=== PATIENT | female | born 1975 | race Caucasian/White ===

== ENCOUNTER → 2018-02-25 | Outpatient (CLI) | payer OTHER ==
[2018-02-25 19:30] LABS: PROGESTERONE 5.5 NG/ML
[2018-02-25 19:30] LABS: FOLLICLE STIMULATING HORMONE 5.2 mIU/mL; LUTEINIZING HORMONE 4.7 mIU/mL
[2018-02-27 17:28] LABS: HPV HYBRID CAPTURE II Negative (Negative)
[2018-02-28 00:21] LABS: CARDIOLIPIN IGA ANTIBODY <9 APL U/mL (0-11); CARDIOLIPIN IGG ANTIBODY <9 GPL U/mL (0-14); CARDIOLIPIN IGM ANTIBODY <9 MPL U/mL (0-12)
== END ==
LOC: M SMT 14:45
DX: N96 Recurrent pregnancy loss (principal); Z12.4 Encounter for screening for malignant neoplasm of cervix
CPT/HCPCS: 83001

== ENCOUNTER 2018-04-14 09:32 | Emergency (ER) | payer OTHER ==
[2018-04-14 10:14] LABS: BASO % 0.3 % (0.0-1.0); EOS % 0.4 % (0.0-3.0); HEMATOCRIT 37.8 % (36.0-47.0); HEMOGLOBIN 12.5 g/dl (12.0-15.5); IMMATURE GRANULOCYTE % 0.2 % (0-3.0); LYMPH # 1.6 10^3/uL (1.5-4.5); LYMPH % 15.4 % (24.0-44.0); MEAN CORPUSCULAR HEMOGLOBIN 27.3 pg (27.0-33.0); MEAN CORPUSCULAR HGB CONC 33.1 g/dl (32.0-36.5); MEAN CORPUSCULAR VOLUME 82.5 fl (80.0-96.0); MONO # 0.5 10^3/uL (0.0-0.8); MONO % 5.1 % (0.0-5.0); NEUTROPHILS # 8.1 10^3/uL (1.8-7.7); NEUTROPHILS % 78.6 % (36.0-66.0); PLATELET COUNT, AUTOMATED 298 10^3/uL (150-450); RED BLOOD COUNT 4.58 10^6/uL (4.00-5.40); RED CELL DISTRIBUTION WIDTH 15.1 % (11.5-14.5); WHITE BLOOD COUNT 10.3 10^3/uL (4.0-10.0)
[2018-04-14 10:28] LABS: AMORPHOUS SEDIMENT RFX SMALL (NEGATIVE); KETONE, URINE AUTO RFX 1+ mg/dL (NEGATIVE); MUCUS, URINE RFX SMALL (NEGATIVE); NITRITE, URINE AUTO RFX NEGATIVE (NEGATIVE); RBC, URINE AUTO RFX 15 /HPF (0-3); SPECIFIC GRAVITY UR AUTO RFX 1.021 (1.002-1.035); SQUAM EPITHELIAL CELL UR AURFX 2 /HPF (0-6); WBC, URINE AUTO RFX 7 /HPF (0-3)
[2018-04-14 10:29] LABS: LEUKOCYTE ESTERASE UR AUTO RFX TRACE (NEGATIVE)
[2018-04-14 10:53] LABS: HCG, SERUM QUANTITATIVE 73710 MIU/ML
== END 2018-04-14 11:53 | disposition home or self-care (01) ==
LOC: M ED 09:32
DX: O26.851 Spotting complicating pregnancy, first trimester (principal)
CPT/HCPCS: 76801

== ENCOUNTER → 2018-06-19 | Outpatient (CLI) | payer OTHER | LOC: M RAD 12:54 | DX: O09.522 Supervision of elderly multigravida, second trimester (principal); O32.2XX0 Maternal care for transverse and oblique lie, not applicable or unspecified; Z3A.18 18 weeks gestation of pregnancy | CPT/HCPCS: 76811 ==

== ENCOUNTER → 2018-07-12 | Outpatient (CLI) | payer OTHER | LOC: M RAD 13:13 | DX: O09.522 Supervision of elderly multigravida, second trimester (principal); Z3A.21 21 weeks gestation of pregnancy | CPT/HCPCS: 76816 ==

== ENCOUNTER → 2018-07-24 | Outpatient (CLI) | payer OTHER ==
[2018-07-24 18:34] LABS: GLUCOSE CHALLENGE TEST 1 HOUR 133 MG/DL (LESS THAN 140)
[2018-07-24 18:37] LABS: HEMATOCRIT 34.8 % (36.0-47.0); HEMOGLOBIN 11.4 g/dl (12.0-15.5); MEAN CORPUSCULAR HEMOGLOBIN 28.2 pg (27.0-33.0); MEAN CORPUSCULAR HGB CONC 32.8 g/dl (32.0-36.5); MEAN CORPUSCULAR VOLUME 86.1 fl (80.0-96.0); PLATELET COUNT, AUTOMATED 262 10^3/uL (150-450); RED BLOOD COUNT 4.04 10^6/uL (4.00-5.40); RED CELL DISTRIBUTION WIDTH 14.6 % (11.5-14.5); WHITE BLOOD COUNT 12.6 10^3/uL (4.0-10.0)
== END ==
LOC: M SMT 13:52
DX: O09.522 Supervision of elderly multigravida, second trimester (principal)
CPT/HCPCS: 82950

== ENCOUNTER → 2018-08-07 | Outpatient (CLI) | payer OTHER ==
--- NOTE | 2018-08-07 15:07 | REP ---
Clinical: Anatomical evaluation. Comparison: 07/12/2018 . Findings: Examination demonstrates a single live intrauterine in breech presentation. motion is identified by technologist. Placenta is noted anterior fundal and grade grade 1 without evidence for placenta previa or abruption. Amniotic fluid volume is normal. Cervix measures 5.2 cm in length and appears closed. Nuchal cord cannot be excluded Gestational age by LMP 25 weeks 5 days with LANI 11/15/2018 . Gestational age by current measurements 26 weeks 0 days with LANI 11/13/2018 . FHR equals 169 beats per minute. Estimated weight 879 grams ( 51st percentile). Anatomical assessment demonstrates normal structures including cranium, choroid plexus, cavum, cerebellum/posterior fossa, facial features, lungs, four-chamber heart/ventricular outflow tracts, diaphragm, stomach, cord insertion/three-vessel cord, kidneys/bladder, spine, and extremities. Impression: 1. Single live intrauterine in breech presentation demonstrating appropriate interval growth. In conjunction with prior examination anatomical assessment is complete and normal. 2. Nuchal cord cannot be excluded. Electronically Signed by Joshua Do MD 08/07/2018 02:59 P
== END ==
LOC: M RAD 13:47
PROVIDERS: ATTEND Obstetrics & Gynecology
DX: O09.522 Supervision of elderly multigravida, second trimester (principal); O32.1XX0 Maternal care for breech presentation, not applicable or unspecified; Z3A.25 25 weeks gestation of pregnancy

== ENCOUNTER → 2018-10-04 | Outpatient (CLI) | payer OTHER ==
--- NOTE | 2018-10-04 19:14 | REP ---
Obstetric ultrasound for third trimester biophysical profile and growth: There is a single intrauterine gestation in a vertex presentation. There is movement and cardiac activity. The heart rate is 103 beats per minute. The placenta is anterior. There is no placenta previa or abruptio. The placenta is grade 1. The amniotic fluid volume subjectively is normal. The amniotic fluid index is 11.1 (8.1 - 24.8) The cervix is 4.7 cm length. Gestational age by today's ultrasound is 13 5 weeks 0 days/LANI 11/08/2018. Gestational age by the first ultrasound 34 weeks 0 days/LANI 11/15/2018. Gestational age by LMP is 34 weeks 0 days/LANI 11/15/2018. weight is 2000 591 grams/5 pounds, 11 ounces. This is the 66th percentile for 34 weeks 0 days. Biophysical profile: Breathing 2.0 Movement 2.0 Tone 2.0 AFV 2.0 Total 8.0 / 8.0. Umbilical artery Doppler assessment, mid cord: S/D ratio 2.94 (2.30-3.30) Resistive Index 0.68 (0.59-0.75 Diastolic Velocity 13.1 (>10 cm/sec) anatomy has been previously assessed with no anomalies. Electronically Signed by David Santamaria MD 10/04/2018 07:06 P
== END ==
LOC: M RAD 16:00
PROVIDERS: ATTEND Specialist
DX: I10 Essential (primary) hypertension (principal)

== ENCOUNTER → 2018-10-11 | Outpatient (CLI) | payer OTHER ==
[~2018-10-11] MED LIST: LABE20TAB PO; PRENTAB9 PO
--- NOTE | 2018-10-11 14:09 | REP ---
Clinical: well-being . Comparison: 10/04/2018 . Findings: Examination demonstrates a single live intrauterine in cephalic presentation. motion is identified by technologist. Placenta is noted anterior and grade II without evidence for placenta previa or abruption. Amniotic fluid volume is normal. Cervix measures 4.5 cm in length and appears closed. No evidence for nuchal cord. Gestational age by LMP 35 weeks 0 days with LANI 11/15/2018 . FHR equals 136 beats per minute. Biophysical profile score: 8/8 Amniotic fluid index: 14.6 cm (7.9 - 24.9). Umbilical cord SD ratio: 3.20 (2.00 - 3.00) Impression: Single live intrauterine in cephalic presentation. Biophysical profile score and amniotic fluid volume normal. SD ratio minimally elevated. Electronically Signed by Joshua Do MD 10/11/2018 02:00 P
== END ==
LOC: M RAD 13:19
PROVIDERS: ATTEND Specialist
DX: O09.523 Supervision of elderly multigravida, third trimester (principal); O10.013 Pre-existing essential hypertension complicating pregnancy, third trimester; Z3A.35 35 weeks gestation of pregnancy

== ENCOUNTER → 2018-10-11 | Outpatient (REF) | payer OTHER | LOC: M LAB REF 17:22 | PROVIDERS: ATTEND Advanced Practice Midwife | DX: O09.523 Supervision of elderly multigravida, third trimester (principal); Z3A.00 Weeks of gestation of pregnancy not specified ==

== ENCOUNTER 2018-10-18 15:23 | Inpatient (IN) | payer OTHER ==
[~2018-10-18] VITALS: Ht 165.1 cm; Wt 105.6 kg
[2018-10-18] VITALS (55 sets, daily range): BP systolic 117–184; BP diastolic 55–91
[2018-10-18] MEDS ORDERED: PRENTAB9 PO (15:40)
[2018-10-18] MEDS ORDERED: LABE20TAB PO (15:40)
[2018-10-18 16:13] LABS: HEMATOCRIT 35.8 % (36.0-47.0); HEMOGLOBIN 11.9 g/dl (12.0-15.5); MEAN CORPUSCULAR HEMOGLOBIN 28.6 pg (27.0-33.0); MEAN CORPUSCULAR HGB CONC 33.2 g/dl (32.0-36.5); MEAN CORPUSCULAR VOLUME 86.1 fl (80.0-96.0); PLATELET COUNT, AUTOMATED 249 10^3/uL (150-450); RED BLOOD COUNT 4.16 10^6/uL (4.00-5.40); WHITE BLOOD COUNT 11.2 10^3/uL (4.0-10.0)
[2018-10-18] MEDS: BETAMETHASONE SOLUSPAN 6MG/ML INJ 5ML (J0702) IM SCH (16:26)
[2018-10-18 16:37] LABS: CREATININE,RANDOM URINE 63.5 MG/DL; TOTAL PROTEIN,RANDOM URINE 33.4 MG/DL (0.0-12.0)
[2018-10-18] MEDS ORDERED: hydrALAZINE INJ 20 MG/ML VIAL IV STA ×2 (16:37→17:17)
[2018-10-18 16:43] LABS: ALT/SGPT 47 U/L (12-78); BILIRUBIN,TOTAL 0.1 MG/DL (0.2-1.0); CREATININE FOR GFR 0.72 MG/DL (0.55-1.30); GLOMERULAR FILTRATION RATE > 60.0 (>58); LDH LACTATE DEHYDROGENASE 195 U/L (84-246); URIC ACID 5.9 MG/DL (2.6-6.0)
[2018-10-18] MEDS ORDERED: LABETALOL HCL 100 MG/20 ML VIAL IV STA ×2 (17:45→18:07)
[2018-10-18] MEDS ORDERED: LABETALOL HCL 100 MG/20 ML VIAL As Ordered ONE (17:47)
[2018-10-18] MEDS ORDERED: LACTATED RINGER'S 1000 ML IV ONE (18:30)
[2018-10-18] MEDS: miSOPROStol 50 MCG 1/2 TAB (S0191) PO SCH ×2 (19:44→23:43)
--- NOTE | 2018-10-18 21:55 | HPE ---
DATE OF ADMISSION: 10/18/2018 Francesca is a 42-year-old 11, para 7-0-3-7 at 36 weeks gestation, estimated date of confinement (EDC) of 11/15/2018 based on last menstrual period and confirmed by first trimester ultrasound. She presents to labor and delivery today following routine appointment in the office where she was noted to have blood pressure in the severe range. She does deny headache, visual disturbances, epigastric pain and right upper quadrant discomfort. She denies vaginal bleeding, leakage of fluid and regular contractions. Her fetus has been active. Her care was initiated at [facility] in the first trimester. Her course has been complicated by chronic hypertension with now superimposed preeclampsia. She has undergone antepartum testing that had been reassuring, advanced maternal age, declined any genetic screening labs. OBSTETRICAL HISTORY: February 2002, 40 weeks 5 days, 8 pounds 10 ounces male vaginal delivery at home. September 2003, 41-2/7 weeks, 8 pounds 5 ounces male vaginal delivery at home. May 2006, 40 1/7 weeks, 9 pounds 6 ounces male vaginal delivery at home. June 2008, 41-1/7 weeks, 8 pounds 12 ounces female vaginal delivery at home. February 2010, 41 weeks gestation, 9 pounds 12 ounces female vaginal delivery at home. May 2011 spontaneous miscarriage at 9 weeks. February 2013, 41-3/7 weeks, 8 pounds 3 ounces male vaginal delivery at home. January 2015, 41-6/7 weeks, 9 pounds male vaginal delivery at home. July 2016 spontaneous miscarriage. October 2016 spontaneous miscarriage. OBSTETRIC LABORATORIES: O+, antibody screen negative, rubella immune, VDRL nonreactive. Urine culture no growth. Hep B surface antigen negative, HIV negative. Hep C antibody nonreactive. Gonorrhea and chlamydia negative. Declined genetic serum screening laboratories. Gestational diabetic screening abnormal at 133, but the patient did refuse to undergo a 3-hour glucose tolerance test. GBS is negative. The first trimester baseline pre-eclamptic labs with an AST 11, ALT 24, LDH 156, uric acid 3.2, spot urine for protein 0.11. PAST MEDICAL HISTORY: Chronic hypertension. Childhood varicella. SURGERIES: None. FAMILY HISTORY: Diabetes, thyroid disorder. SOCIAL HISTORY: The patient is . Her is at bedside. She is a nonsmoker. Denies alcohol use. Denies drug use. No history of any sexually transmitted infections and denies history of abuse -- physical, sexual and emotional. ALLERGIES: No known drug allergies. CURRENT MEDICATIONS: - Labetalol 200 mg by mouth twice a day OBJECTIVE: Temperature 98.8, pulse 93, respirations 18, BP is in the severe range repetitively, she has required two doses of IV hydralazine, as well as two doses of IV labetalol. heart rate is 135, moderate variability, positive accelerations, negative decelerations. There is no pattern of contractions. Her abdomen is gravid, cephalic presentation. Estimated weight 2900 grams to 3100 grams. Sterile vaginal exam: Fingertip, 50% effaced, ballottable station. Labs have been returned. Her spot urine for protein is 0.53. Pre-eclamptic labs: AST 27, ALT 47, LDH 195, uric acid 5.9 today. Hemoglobin 11.9, hematocrit 35.8, platelet 249. She underwent a BPP prior to her appointment today which returned a score of 8 points out of 8 points, for MELVI with oligohydramnios 5.8 cm, umbilical cord SD ratio is 2.73, in the normal range. ASSESSMENT: 1. Intrauterine at 36 weeks. heart rate category one. 2. Chronic hypertension with superimposed preeclampsia. 3. Advanced maternal age. 4. Oligohydramnios. First dose of betamethasone complete. PLAN: Per consult with Dr. Terrence Workman, admit the patient to labor and delivery for induction of labor. I did review the plan of care with the patient and her and had all their questions answered. The patient has been verbally consented for emergency surgery and blood products if necessary. We reviewed the risks to induction that include increased risk for section and intolerance to labor, failed induction. At this time, the patient will be having misoprostol 50 mcg by mouth every 4 hours for cervical ripening. Likely will start IV Pitocin. May consider Storey bulb insertion. May consider assisted rupture of membranes. The patient may consider IV pain medications and/or an epidural depending on how her labor goes. I do anticipate a labor and vaginal delivery.
[2018-10-19] VITALS (109 sets, daily range): BP systolic 106–165; BP diastolic 55–82
[2018-10-19] MEDS: miSOPROStol 50 MCG 1/2 TAB (S0191) PO SCH (03:51)
[2018-10-19] MEDS ORDERED: miSOPROStol 50 MCG 1/2 TAB (S0191) SL SCH (10:15)
[2018-10-19] MEDS ORDERED: OXYTOCIN DRIP 30 UNITS in APPROPRIATE DILUENT 1 EA IV SCH (14:45)
[2018-10-19] MEDS: LR 1,000 ML IV SCH ×2 (15:03→23:37)
[2018-10-19 15:07] LABS: HEMATOCRIT 32.7 % (36.0-47.0); HEMOGLOBIN 10.8 g/dl (12.0-15.5); MEAN CORPUSCULAR HEMOGLOBIN 28.2 pg (27.0-33.0); MEAN CORPUSCULAR VOLUME 85.4 fl (80.0-96.0); PLATELET COUNT, AUTOMATED 254 10^3/uL (150-450); RED BLOOD COUNT 3.83 10^6/uL (4.00-5.40); WHITE BLOOD COUNT 12.5 10^3/uL (4.0-10.0)
[2018-10-19] MEDS: BETAMETHASONE SOLUSPAN 6MG/ML INJ 5ML (J0702) IM SCH (16:18)
[2018-10-19] MEDS ORDERED: BUTORPHANOL 2 MG/ML INJ (J0595) IV ONE (22:45)
[2018-10-19] MEDS ORDERED: PROMETHAZINE INJ 25 MG/ML VIAL (J2550) IV ONE (22:45)
[2018-10-20] VITALS (27 sets, daily range): BP systolic 80–167; BP diastolic 43–88
[2018-10-20] MEDS ORDERED: METHYLERGONOVINE MALEATE 0.2 MG TAB PO PRN (01:30)
[2018-10-20] MEDS ORDERED: ACETAMINOPHEN 500 MG TAB PO PRN (01:30)
[2018-10-20] MEDS ORDERED: RHOGAM 300 MCG (1500 IU) INJ (J2790) IM SCH (01:30)
[2018-10-20] MEDS ORDERED: ONDANSETRON 4MG/2ML VIAL (J2405) IV PRN (01:30)
[2018-10-20] MEDS ORDERED: OXYTOCIN DRIP 30 UNITS in APPROPRIATE DILUENT 1 EA IV ONE (01:30)
[2018-10-20] MEDS ORDERED: MEASLES,MUMPS,RUBELLA VACCINE INJ (MMR-II) (90707) SC SCH (01:30)
[2018-10-20] MEDS ORDERED: IBUPROFEN 800 MG TAB PO PRN (01:30)
[2018-10-20] MEDS ORDERED: DOCUSATE SODIUM 100 MG CAP PO PRN (01:30)
[2018-10-20] MEDS ORDERED: DIBUCAINE 1% OINTMENT 30GM TOP PRN (01:30)
[2018-10-20 06:06] LABS: HEMATOCRIT 25.7 % (36.0-47.0); MEAN CORPUSCULAR HEMOGLOBIN 28.5 pg (27.0-33.0); MEAN CORPUSCULAR HGB CONC 32.7 g/dl (32.0-36.5); MEAN CORPUSCULAR VOLUME 87.1 fl (80.0-96.0); PLATELET COUNT, AUTOMATED 255 10^3/uL (150-450); RED BLOOD COUNT 2.95 10^6/uL (4.00-5.40); WHITE BLOOD COUNT 21.4 10^3/uL (4.0-10.0)
[2018-10-20 06:50] LABS: HEMOGLOBIN 8.4 g/dl (12.0-15.5)
[2018-10-20] MEDS: PRENATAL VITAMINS CHEWABLE TABLET PO SCH (09:32)
[2018-10-20 18:20] LABS: HEMATOCRIT 24.4 % (36.0-47.0); MEAN CORPUSCULAR HGB CONC 32.8 g/dl (32.0-36.5); MEAN CORPUSCULAR VOLUME 88.4 fl (80.0-96.0); PLATELET COUNT, AUTOMATED 233 10^3/uL (150-450); RED BLOOD COUNT 2.76 10^6/uL (4.00-5.40)
[2018-10-21] VITALS (10 sets, daily range): BP systolic 130–182; BP diastolic 60–115
[2018-10-21] MEDS ORDERED: LABETALOL 200 MG TAB PO ONE (04:00)
[2018-10-21] MEDS: PRENATAL VITAMINS CHEWABLE TABLET PO SCH (08:08)
[2018-10-21] MEDS: LABETALOL 200 MG TAB PO SCH ×2 (08:58→20:12)
--- NOTE | 2018-10-21 13:36 | DN ---
DATE OF DELIVERY: 10/20/2018 PREDELIVERY DIAGNOSIS: 36 week gestation, chronic hypertension with superimposed preeclampsia. POSTDELIVERY DIAGNOSIS: Delivered. PROCEDURE: Spontaneous vaginal delivery. MEDICAL WRITER: Terrence Workman MD ANESTHESIA: None. FINDINGS: 5 pound 14 ounce male , score 7 and 9. DELIVERY SUMMARY: After a short segment stage, the patient had precipitous delivery of a 5 pound 14 ounce male infant, score 7 and 8, with no delivered anesthesia. There was no nuchal cord. The shoulders delivered with ease. The was handed to the mother. Cord was doubly clamped and cut. After approximately 65 minutes, placenta was retained. Patient noted to be have significant bleeding. A manual extraction of partially placenta was performed. Placenta appeared to be removed intact. Patient received intravenous (IV) pitocin immediately after delivery of the placenta. Bleeding decreased after the placenta was removed. Total blood loss 1000 mL. There were no vaginal lacerations present. Sponge counts were correct.
[2018-10-22] VITALS (7 sets, daily range): BP systolic 148–170; BP diastolic 70–86
--- NOTE | 2018-10-22 01:29 | IPNPDOC ---
Progress Note Date of Service: Oct 21, 2018 Day#: 1 Progress Note SUBJECT: Patient denies nay symptoms of preeclampsia. She does report increased anxiety due to having to be placed under phototherapy lights. OBJECTIVE: VITAL SIGNS: elevate blood pressures, afebrile. Alert and oriented times three. Breath sounds clear to auscultation. Heart rate: Regular rate and rhythm, no murmurs, rubs or gallops. ASSESSMENT: Day 1 ; CHTN PLAN: BP's and plan of care reviewed with Dr. Torres. Given patient has no symptoms we will increase her labetalol to 300 mg in the morning. VS, I&O, 24H, Fishbone Vital Signs/I&O Vital Signs Date Time Temp Pulse Resp B/P (MAP) Pulse Ox O2 Delivery O2 Flow Rate FiO2 10/21/18 21:30 98.6 94 18 159/84 (109) 10/21/18 18:00 [address] DEL[address]ILES CNM Oct 22, 2018 01:29
[2018-10-22] MEDS: LABETALOL 100 MG TAB PO SCH ×3 (07:40→21:35)
[2018-10-22] MEDS: PRENATAL VITAMINS CHEWABLE TABLET PO SCH (07:40)
[2018-10-22] MEDS ORDERED: LABETALOL 100 MG TAB PO SCH (09:00)
--- NOTE | 2018-10-22 10:55 | NUR ---
PPD#2 S: Denies visual changes, abd pain or headaches. Reports increase anxiety and agitation. O: vs 151/73, 18, 96, 98.4 gen: well appearing abd: soft,nttp, FF@u-2 A/P: 42yo s/p c/b CHTN, have increase labetalol 300mg BID. Will continue to monitor. Possible d/c later today, more likely tomorrow depression- I discussed treatment and r/b. Will start on zoloft 50mg daily Veronica Torres MD
[2018-10-22] MEDS ORDERED: SERTRALINE HCL 50 MG TAB PO ONE (13:00)
[2018-10-23 02:29] VITALS: BP 173/81
[2018-10-23 03:00] VITALS: BP 160/82
[2018-10-23 06:30] VITALS: BP 162/80
[2018-10-23 06:36] VITALS: BP 170/82
[2018-10-23] MEDS ORDERED: LABETALOL 100 MG TAB PO SCH (06:45)
[2018-10-23] MEDS: PRENATAL VITAMINS CHEWABLE TABLET PO SCH (07:45)
[2018-10-23] MEDS ORDERED: LABE20TAB PO (07:58)
[2018-10-23] MEDS ORDERED: IBUP-1114 PO (08:10)
[2018-10-23] MEDS ORDERED: MAPA500T2 PO (08:10)
[2018-10-23] MEDS ORDERED: COLA100C5 PO (08:10)
[2018-10-23 10:00] VITALS: BP 160/80
== END 2018-10-23 13:40 | disposition home or self-care (01) | DRG 541 ==
LOC: M LDO 15:23 → M LDI 18:26 → M OBS 10-20 09:14
PROVIDERS: ADMIT Advanced Practice Midwife; ATTEND Advanced Practice Midwife
PROC: 3E0DXGC Introduction of Other Therapeutic Substance into Mouth and Pharynx, External Approach (ICD-10-PCS; 2018-10-18)
PROC: 10E0XZZ Delivery of Products of Conception, External Approach (ICD-10-PCS; principal; 2018-10-20)
PROC: 10D17Z9 Manual Extraction of Products of Conception, Retained, Via Natural or Artificial Opening (ICD-10-PCS; 2018-10-20)
DX: O41.03X0 Oligohydramnios, third trimester, not applicable or unspecified (principal); O14.94 Unspecified pre-eclampsia, complicating childbirth; Z37.0 Single live birth; Z3A.36 36 weeks gestation of pregnancy; O09.523 Supervision of elderly multigravida, third trimester; O62.3 Precipitate labor; O73.0 Retained placenta without hemorrhage

== ENCOUNTER → 2018-10-18 | Outpatient (CLI) | payer OTHER ==
[~2018-10-18] MED LIST changes: +COLA100C5 PO; +IBUP-1114 PO; +MAPA500T2 PO
--- NOTE | 2018-10-18 16:59 | REP ---
Obstetric sonography: History: growth study. Maternal hypertension. Findings: Limited obstetric sonography demonstrates a viable single intrauterine gestation in a cephalic lie. Placenta is anterior grade 1 without evidence of previa. The placenta appears somewhat thickened, 6.8 cm. There are placental lakes visible. Cannot exclude placenta accreta. Possible 1.9 cm fibroid in the anterior myometrium. Closed cervical length measured transabdominally is 3.7 cm. heart rate is recorded at 143 beats per minute. Amniotic fluid is subjectively somewhat low. MELVI is slightly decreased at 5.8 cm (7.7-24.9 cm). SD ratio in the umbilical cord artery by Doppler is normal at 2.73. Umbilical cord is seen draping across the shoulders. Biophysical profile score eight out of a possible eight. Impression: Some placental thickening possible of the anterior fibroid. Cannot completely exclude placenta accreta. Slightly low amniotic fluid, MELVI 5.8 cm. Electronically Signed by Celso Lunsford MD 10/18/2018 04:50 P
== END ==
LOC: M RAD 13:27
PROVIDERS: ATTEND Specialist
DX: O09.523 Supervision of elderly multigravida, third trimester (principal); O10.013 Pre-existing essential hypertension complicating pregnancy, third trimester; Z3A.00 Weeks of gestation of pregnancy not specified